=== PATIENT | female | born 1965 | race Caucasian/White ===

== ENCOUNTER → 2016-06-27 | Outpatient (CLI) | payer BC ==
--- NOTE | ~2016-06-27 | MY6 ---
[facility] A Service of [facility] & [facility] RADIOLOGY TEXT RESULTS PATIENT: HOANG BOCANEGRA LOCATION: [facility] : 67 UNIT #: [id number] AGE: [address]: Rafaela Oneal MD SEX: F ORDER DR: [id number] [facility] [address] [place], [place] [address] [id number] O MR#: [id number] Acc #: [id number] NAME: HOANG BOCANEGRA : 1965 SEX: F STUDY DATE/TIME: 06/27/2016 10:00 UNIT: [facility] ROOM: STUDY DESCRIPTION: MY Mammogram Dx Dig Jean Attending Physician: Rafaela Oneal M.D. Ordering Physician: Rafaela Oneal M.D. Primary Care Physician: Rafaela Oneal M.D. MEDICAL IMAGING REPORT This report is preliminary unless electronic signature is present EXAM Bilateral digital diagnostic mammogram with CAD 06/27/2016 INDICATIONS 50-year-old female undergoing a second 6-month followup mammogram for probably benign calcifications in the right breast and an asymmetry in the medial hemisphere right breast. No new problems. TECHNIQUE CC, MLO and true lateral views on the right were obtained along with spot magnification CC and true lateral views. Standard screening views were obtained on the left. COMPARISON Comparison studies 11/16/2015, 05/03/2015, 04/25/2015. FINDINGS The breast parenchyma is composed of scattered fibroglandular densities. The pattern is unchanged. The probably benign calcifications in the posterior upper outer right breast are stable, compared to the prior studies dating back to 04/25/2015. Given stability over the past year, these are most characteristic of benign calcifications. The asymmetry in the medial hemisphere, right breast, is also unchanged over the past year and most indicative of benign fibroglandular tissue. Ultrasound of the right breast has been performed previously and was also negative. There is no new dominant nodule or mass in either breast. No new suspicious cluster of microcalcifications. I recommend the patient return to an annual screening schedule with a repeat mammogram in 1 year. Findings and recommendations were discussed with the patient here in the [facility] A Service of [facility] & [facility] RADIOLOGY TEXT RESULTS PATIENT: HOANG BOCANEGRA LOCATION: [facility] : 67 UNIT #: [id number] AGE: [address]: Rafaela Oneal MD SEX: F ORDER DR: department. She voiced understanding and agreement. IMPRESSION Benign screening mammogram; 1- year followup recommended. Patients over the age of 40 are entered into a reminder system with target due date for the next mammogram. A result letter will also be sent to the patient. BIRADS: 2 Benign finding. Dictated by... Carmelo Bello M.D. THIS IS AN ELECTRONICALLY VERIFIED REPORT Carmelo Bello M.D. at 06/28/2016 5:34 PM Apoorva TD: 06/27/2016 13:38 JOB #: [id number] MEDICAL IMAGING REPORT Page 1 of 1 COPY
== END | disposition home or self-care (01) ==
LOC: CMAM 09:14
DX: R92.0 Mammographic microcalcification found on diagnostic imaging of breast (principal)
CPT/HCPCS: G0204